=== PATIENT | male | born 1940 | race Caucasian/White ===

== ENCOUNTER 2019-12-06 13:18 | Emergency (ER) | payer MEDICARE ==
[~2019-12-06] VITALS: Ht 332.7 cm; Wt 74.8 kg
[~2019-12-06 13:18] MED LIST: AMLODIPINE BESYL5 MG PO
--- NOTE | 2019-12-06 14:00 | NUR ---
PATIENT UPSET HE IS BEING DISCHARGED HOME AND HAVING TO CALL A SURGEON TO EVALUATE HIS MASS. EMOTIONAL SUPPORT GIVEN
== END 2019-12-06 14:05 | disposition home or self-care (01) ==
LOC: ER 13:18
DX: K62.89 Other specified diseases of anus and rectum (principal); I10 Essential (primary) hypertension
CPT/HCPCS: 99283